=== PATIENT | female | born 1945 | race Caucasian/White ===

== ENCOUNTER 2017-12-26 13:40 | Emergency (ER) | END 2017-12-26 16:27 | disposition home or self-care (01) ==

== ENCOUNTER → 2018-01-26 | Outpatient (CLI) | payer OTHER ==
[~2018-01-26] MED LIST: AMOX500 PO; CARI350; CEFU250 PO; OXYC10ER; PROACE100; SOMA250 MG
[2018-01-26 16:46] LABS: Percent Saturation 44.8 % (15.0-50.0)
== END ==
LOC: LAB SHORT 15:00 → LAB 15:00
PROVIDERS: Internal Medicine Hematology & Oncology
DX: K92.1 Melena (principal); N18.9 Chronic kidney disease, unspecified; D63.1 Anemia in chronic kidney disease
CPT/HCPCS: 82728; 83540; 83550

== ENCOUNTER 2018-12-20 11:40 | Emergency (ER) | payer OTHER ==
[~2018-12-20] VITALS: Ht 180.3 cm; Wt 41.7 kg
[2018-12-20] MEDS ORDERED: Norco 5-325 Ta1 EACH PO (14:07)
== END 2018-12-20 14:18 | disposition home or self-care (01) ==
LOC: ER 11:40
DX: S93.401A Sprain of unspecified ligament of right ankle, initial encounter (principal); N18.9 Chronic kidney disease, unspecified; Z88.8 Allergy status to other drugs, medicaments and biological substances; Z91.041 Radiographic dye allergy status; Z86.19 Personal history of other infectious and parasitic diseases; W19.XXXA Unspecified fall, initial encounter
CPT/HCPCS: 73610; 99283-25

== ENCOUNTER → 2019-03-23 | Outpatient (CLI) | payer OTHER ==
[~2019-03-23] MED LIST changes: +Norco 5-325 Ta1 EACH PO
[2019-03-25 16:06] LABS: HPV 16 Negative (Negative); HPV 18 Negative (Negative); HPV OTHER HR TYPES Negative (Negative)
== END | disposition home or self-care (01) ==
LOC: LAB SHORT 19:38 → LAB 19:38
PROVIDERS: Obstetrics & Gynecology Gynecology
DX: Z12.4 Encounter for screening for malignant neoplasm of cervix (principal)
CPT/HCPCS: 87624; G0123

== ENCOUNTER → 2019-07-26 | Outpatient (CLI) | payer OTHER | END | disposition home or self-care (01) | LOC: PLD 10:54 → LAB SHORT 10:54 | DX: C44.41 Basal cell carcinoma of skin of scalp and neck (principal) | CPT/HCPCS: 88305 ==

== ENCOUNTER → 2019-08-04 | Outpatient (CLI) | payer OTHER | END | disposition home or self-care (01) | LOC: PLD 07:27 → LAB SHORT 07:27 | DX: C44.41 Basal cell carcinoma of skin of scalp and neck (principal) | CPT/HCPCS: 88305 ==

== ENCOUNTER → 2020-06-13 | Outpatient (CLI) | payer OTHER | END | disposition home or self-care (01) | LOC: LAB SHORT 08:19 → PLD 08:19 | DX: L57.0 Actinic keratosis (principal) | CPT/HCPCS: 88305 ==

== ENCOUNTER → 2020-12-03 | Outpatient (CLI) | payer OTHER ==
[2020-12-04 10:51] LABS: U Amphetamine Screen DETECTED; U Barbituate Screen Not Detected; U Benzodiazapine Screen Not Detected; U Buprenorphine Screen Not Detected; U Cannabinoids Screen Not Detected; U Cocaine Screen Not Detected; U Methadone Screen Not Detected; U Methamphetamine Screen Not Detected; U Opiates Screen Not Detected; U Oxycodone Screen Not Detected; U Phencyclidine Screen Not Detected; U Propoxyphene Screen Not Detected
== END | disposition home or self-care (01) ==
LOC: LAB SHORT 14:10 → LAB 14:10
PROVIDERS: Internal Medicine Hematology & Oncology
DX: R39.89 Other symptoms and signs involving the genitourinary system (principal); Z79.899 Other long term (current) drug therapy

== ENCOUNTER 2022-02-08 10:17 | Emergency (ER) | payer OTHER ==
[~2022-02-08] VITALS: Ht 157.5 cm; Wt 52.2 kg
[2022-02-08 11:13] LABS: BASOPHILS PERCENT AUTO 0 % (0-2); EOSINOPHILS ABSOLUTE AUTO 0.03 K/mm3 (0.00-0.68); EOSINOPHILS PERCENT AUTO 0 % (0-6); Hematocrit 22.4 % (33.0-51.0); Hemoglobin 6.9 g/dL (11.5-16.0); IMMATURE GRAN ABSOLUTE AUTO 0.05 K/mm3 (0.00-0.10); IMMATURE GRAN PERCENT AUTO 1 % (0-1); LYMPHOCYTES ABSOLUTE AUTO 0.55 K/mm3 (0.84-5.20); LYMPHOCYTES PERCENT AUTO 8 % (21-46); MONOCYTES ABSOLUTE AUTO 0.68 K/mm3 (0.16-1.47); MONOCYTES PERCENT AUTO 10 % (4-13); Mean Corpuscular HGB 33.5 pg (26.0-34.0); Mean Corpuscular HGB Conc 30.8 g/dL (31.5-36.5); Mean Corpuscular Volume 109 fL (80-100); Mean Platelet Volume 8.3 fL (9.1-12.4); NEUTROPHILS ABSOLUTE AUTO 5.55 K/mm3 (1.96-9.15); NEUTROPHILS PERCENT AUTO 81 % (41-73); NRBC ABSOLUTE 0.11 K/mm3 (0.00-0.02); NRBC Auto 1.6 /100 WBC (0.0-0.2); Platelet Count 308 K/mm3 (150-400); RDW Standard Deviation 75.4 fL (35.1-46.3); Red Blood Cell Count 2.06 M/mm3 (3.80-5.20); White Blood Cell Count 6.86 K/mm3 (4.00-11.30)
[2022-02-08 11:34] LABS: Albumin, Blood 2.7 g/dL (3.4-5.0); Albumin/Globulin Ratio 0.8 (0.8-1.8); Bilirubin, Total 0.2 mg/dL (0.1-1.0); Calcium, Blood 8.6 mg/dL (8.5-10.1); Creatinine, Blood 1.39 mg/dL (0.40-1.00); Globulin, Blood 3.4 g/dL (2.2-4.0); Potassium, Blood 3.3 mmol/L (3.5-5.5); Total Protein, Blood 6.1 g/dL (6.4-8.2)
[2022-02-08 12:26] LABS: Free Thyroxine 1.07 ng/dL (0.70-1.60); Percent Saturation 10.4 % (15.0-50.0); Thyroid Stimulating Hormone 1.16 uIU/mL (0.360-4.800)
[2022-02-08 14:26] LABS: Source, Urine Clean Catch
[2022-02-08 14:29] LABS: Appearance, Urine Hazy (Clear); Bilirubin, Urine Neg (Neg); Blood, Urine 1+ (Neg); Color, Urine Yellow (P-Yellow); Glucose Qualitative, Urine Neg (Neg); Ketones, Urine Neg (Neg); Leukocyte Esterase, Urine 3+ (Neg); Nitrite, Urine Pos (Neg); Protein, Urine 1+ (Neg); Urobilinogen, Urine NORM (Normal)
[2022-02-08 14:55] LABS: Bacteria Many /hpf; Squamous Epithelial Cells Few /hpf (Few)
[2022-02-08 14:56] LABS: Hyaline Casts 0-2 /lpf (0-2)
[2022-02-09] MEDS ORDERED: CEFD300 PO (10:00)
== END 2022-02-08 15:47 | disposition home or self-care (01) ==
LOC: ER 10:17
PROVIDERS: Emergency Medicine; Physician Assistant
DX: N39.0 Urinary tract infection, site not specified (principal); R53.1 Weakness; N18.9 Chronic kidney disease, unspecified; D63.1 Anemia in chronic kidney disease; Z91.041 Radiographic dye allergy status; Z88.8 Allergy status to other drugs, medicaments and biological substances
CPT/HCPCS: 36415; 36430; 70450; 71045; 74176; 80053; 81001; 82728; 83540; 83550; 83735; 84439; 84443; 85025; 86850; 86900; 86901; 86923; 87077; 87086; 87186; 93005; 93010; 99285-25; J7030; P9016

== ENCOUNTER → 2022-02-12 | Outpatient (CLI) | payer OTHER ==
[~2022-02-12] MED LIST changes: +CEFD300 PO
[2022-02-12 16:17] LABS: Percent Saturation 32.3 % (15.0-50.0)
== END | disposition home or self-care (01) ==
LOC: LAB SHORT 10:11
PROVIDERS: Internal Medicine Hematology & Oncology
DX: E53.8 Deficiency of other specified B group vitamins (principal); N18.9 Chronic kidney disease, unspecified; D63.1 Anemia in chronic kidney disease
CPT/HCPCS: 82607; 82728; 82746; 83540; 83550

== ENCOUNTER 2022-07-30 13:21 | Inpatient (IN) | payer OTHER ==
[~2022-07-30] VITALS: Ht 165.1 cm; Wt 87.8 kg
[2022-07-30 14:13] LABS: BASOPHILS PERCENT AUTO 0 % (0-2); EOSINOPHILS PERCENT AUTO 0 % (0-6); Hematocrit 20.7 % (33.0-51.0); IMMATURE GRAN ABSOLUTE AUTO 0.12 K/mm3 (0.00-0.10); IMMATURE GRAN PERCENT AUTO 1 % (0-1); LYMPHOCYTES ABSOLUTE AUTO 0.18 K/mm3 (0.84-5.20); LYMPHOCYTES PERCENT AUTO 1 % (21-46); MONOCYTES PERCENT AUTO 8 % (4-13); Mean Corpuscular HGB 25.7 pg (26.0-34.0); Mean Corpuscular HGB Conc 26.1 g/dL (31.5-36.5); Mean Corpuscular Volume 99 fL (80-100); Mean Platelet Volume 10.7 fL (9.1-12.4); NEUTROPHILS ABSOLUTE AUTO 11.68 K/mm3 (1.96-9.15); NEUTROPHILS PERCENT AUTO 90 % (41-73); NRBC ABSOLUTE 0.11 K/mm3 (0.00-0.02); NRBC Auto 0.8 /100 WBC (0.0-0.2); Platelet Count 165 K/mm3 (150-400); RDW Coefficient Variation 21.6 % (11.7-14.2); RDW Standard Deviation 75.9 fL (35.1-46.3); White Blood Cell Count 12.98 K/mm3 (4.00-11.30)
[2022-07-30 14:16] LABS: Hemoglobin 5.4 g/dL (11.5-16.0)
[2022-07-30 14:30] LABS: Source, Urine Straight Cath
[2022-07-30 14:30] LABS: Albumin, Blood 3.1 g/dL (3.4-5.0); Albumin/Globulin Ratio 0.9 (0.8-1.8); Bilirubin, Total 0.7 mg/dL (0.1-1.0); Bun/Creatinine Ratio 37.2 (12.0-20.0); Calcium, Blood 9.4 mg/dL (8.5-10.1); Creatinine, Blood 1.72 mg/dL (0.40-1.00); Globulin, Blood 3.6 g/dL (2.2-4.0); Magnesium, Blood 2.1 mg/dL (1.6-2.4); Potassium, Blood 3.9 mmol/L (3.5-5.5); Total Protein, Blood 6.7 g/dL (6.4-8.2)
[2022-07-30 14:37] LABS: Appearance, Urine Hazy (Clear); Bilirubin, Urine Neg (Neg); Blood, Urine 5+ (Neg); Color, Urine Yellow (P-Yellow); Glucose Qualitative, Urine Neg (Neg); Ketones, Urine 1+ (Neg); Leukocyte Esterase, Urine 1+ (Neg); Nitrite, Urine Pos (Neg); Protein, Urine 2+ (Neg); Urobilinogen, Urine NORM (Normal)
[2022-07-30 14:53] LABS: Creatine Kinase MB 60.7 ng/mL (0.0-3.6)
[2022-07-30 15:11] LABS: Creatine Kinase MB Index 1.4 (0.0-4.0)
[2022-07-30 15:15] LABS: Bacteria Many /hpf
[2022-07-30 15:17] LABS: Squamous Epithelial Cells Rare /hpf (Few); Transitional Epithelial Cells Rare /hpf (0-Rare)
[2022-07-30 22:03] LABS: Percent Saturation 40.5 % (15.0-50.0)
[2022-07-31 04:14] LABS: Hematocrit 28.8 % (33.0-51.0); Hemoglobin 8.6 g/dL (11.5-16.0); Mean Corpuscular HGB Conc 29.9 g/dL (31.5-36.5); NRBC ABSOLUTE 0.07 K/mm3 (0.00-0.02); NRBC Auto 0.7 /100 WBC (0.0-0.2); Platelet Count 127 K/mm3 (150-400); RDW Coefficient Variation 22.2 % (11.7-14.2); RDW Standard Deviation 70.1 fL (35.1-46.3); Red Blood Cell Count 3.19 M/mm3 (3.80-5.20); White Blood Cell Count 10.42 K/mm3 (4.00-11.30)
[2022-07-31 04:23] LABS: Mean Corpuscular Volume 90 fL (80-100)
[2022-07-31 04:43] LABS: Bun/Creatinine Ratio 37.8 (12.0-20.0); Calcium, Blood 8.7 mg/dL (8.5-10.1); Creatinine, Blood 1.43 mg/dL (0.40-1.00); Potassium, Blood 3.3 mmol/L (3.5-5.5)
--- NOTE | 2022-07-31 05:19 | NUR ---
SHIFT SUMMARY ER ADMIT, ARRIVAL TO PCU AT 2205. PT ALERT AND ORIENTED X2. AFEBRILE. HR SR/ST 90-110S. BP STABLE. ON RA SATS OVER 96%. C/O R JAW PAIN, MEDICATED PER EMAR. MOORE IN PLACE DRAINING TO GRAVITY. D5 INFUSING AT 75ML/HR. PT ON BEDREST THROUGHOUT THE NIGHT. PT REPORTS SHE DOES NOT KNOW WHY SHE IS HERE OR WHEN HER WOUNDS STARTED. SEE WOUND PHOTOS IN CHART. PT RESTING COMFORTABLY MOST OF NIGHT AFTER 0100. ASLEEP WITH CALL ALARM AT SIDE, WILL CONTINUE TO MONITOR UNTIL REPORT GIVEN TO ONCOMING RN
--- NOTE | 2022-07-31 14:03 | NUR ---
Brief supportive visit this afternoon. Pt resting in bed with her eyes closed. Pt wakes to gentle verbal stimuli. Pt is pleasantly confused A&OX1. Pt unable to state place, reason for stay, current year, or name family members. Pt appears lethargic states being tired. Ended visit to allow Pt to rest. Attempted to call Pt's daughter Nery. Left message on voicemail with request for a return phone call. Called alternate number listed for daughter Nery and reached Pt's other daughter Layla. Provided update and reviewed plan of care. Layla reports Nery will be Pt's decision maker. Discussed plan to contact Nery regarding Pt's code status. Layla in agreement. Palliative Care will remain available.
--- NOTE | 2022-07-31 15:03 | NUR ---
Received return phone call Pt's daughter Nery. Provided update and engaged in discussion regarding code status. Nery reports having completed a POLST with Pt and Pt's PCP in the past with Pt's wishes to be DNR. Nery would like her code status to align with POLST for DNR. Offered active listening and answered questions. Gentle education on disease process including trajectory. Discussed the importance of planning for the future as disease progresses. Nery reports several attempts in the past to convince Pt to move in with her. Suggested at some point obtaining guardianship for Pt due to her dementia. Continued supportive conversation. Nery expresses appreciation and reports no other concerns. Spoke with Dr Chow and discussed case. Placed order for DNR in [facility] per V/O from Dr Chow. Palliative Care will remain available.
--- NOTE | 2022-07-31 17:32 | NUR ---
SHIFT SUMMARY/TRANSFER NOTE PT ALERT TO FIRST NAME ONLY AND DATE OF . SHE REPORTED THAT SHE THOUGHT SHE WAS "SOMEWHERE AT HOME." DESPITE REORIENTATION, SHE REMAINS CONFUSED TO PLACE AND SITUATION. SHE HAS ONLY USED THE CALL LIGTH ONCE DURING SHIFT AND HAS OTHERWISE CALLED OUT FOR WATER. SIPS OF WATER GIVEN BY SPOON BUT PT DENIED WANTING ANY OTHER PO INTAKE. VSS, SPO2 100% VIA ROOM AIR. SEE EMAR FOR PAIN MANAGEMENT. SHE REMAINED AFEBRILE AND DENIED FEELINGS OF NAUSEA. MOORE CATHETER IN PLACE AND DRAINING TO GRAVITY LIGHT YELLOW OUTPUT. NO BM THIS SHIFT, SEE EMAR FOR BOWEL CARE. SEE CHART FOR PHOTOS OF WOUNDS, WOUND LOCATED ABOVE PELVIC AREA WAS CLEANSED W/ WOUND CLEANSER BUT LEFT OPEN TO AIR. Q2 TURNING IMPLIMENTED TO KEEP OFF PRESSURE POINTS. SIGNIFICANT OTHER JOVON WAS AT BEDSIDE THIS AM AND PER HIS REPORT, HE AND THE PT DO NOT LIVE TOGETHER. [facility] CERTIFIED PERSONAL FINANCE COUNSELOR SPOKE W/ JOVON IN REGARD TO EVENT AND ASKED HOW PT AQUIRED WOUND OVER PELVIC AREA. SIGNIFICANT OTHER JOVON STATED THAT HE HAS NOT SEEN HER UNDRESSED AND WAS UNAWARE OF ANY WOUND. SHE WAS SOMNOLENT FOR MAJORITY OF SHIFT. PRINCE FROM PALLIATIVE CARE WAS ALSO AT BEDSIDE AND PER PRINCE RN REPORT, HE SPOKE W/ PT DAUGHTER TANIA WHO IS ALSO THE HEALTHCARE PROXY. REPORT GIVEN TO MAITE TONY ON MEDICAL FLOOR AND PT TRANSFERED VIA HOSPITAL BED AT APPROX 1810 TO ROOM 305.
--- NOTE | 2022-07-31 19:19 | NUR ---
PT ARRIVED TO ROOM APPROX 1820 AND SETTLED IN. OBSERVED BRUISING TO FACE AND NECROTIC APPEARING WOUND TO L ANTERIOR PELVIC REGION. QUIET THROUGHOUT SETTLING IN PROCESS. IV FLUIDS INFUSING. REPORT GIVEN TO ONCOMING SHIFT.
--- NOTE | 2022-08-01 05:00 | NUR ---
SHIFT SUMMARY: PT IS ALERT WITH SOME BASELINE CONFUSION. PT WAS ANXIOUS INTERMITTENTLY THROUGHOUT THE NIGHT. PT IS A 1-2 PERSON ASSIST WITH FWW, NOT OUT OF BED THIS SHIFT. PT REPORTS PAIN ON TWO OCCASION, MEDICATING PER EMAR. PT DENIES NAUSEA AND VOMITING. MOORE PATENT AND DRAINING YELLOW URINE. PT SLEPT OFF AND ON. NO ACUTE CHANGES OR COMPLICATIONS. BED IN LOW POSITION, CALL LIGHT WITHIN REACH. WILL REPORT TO DAY NURSE.
[2022-08-01 05:06] LABS: BASOPHILS PERCENT AUTO 0 % (0-2); EOSINOPHILS ABSOLUTE AUTO 0.03 K/mm3 (0.00-0.68); EOSINOPHILS PERCENT AUTO 1 % (0-6); Hematocrit 28.6 % (33.0-51.0); Hemoglobin 8.5 g/dL (11.5-16.0); IMMATURE GRAN ABSOLUTE AUTO 0.03 K/mm3 (0.00-0.10); IMMATURE GRAN PERCENT AUTO 1 % (0-1); LYMPHOCYTES ABSOLUTE AUTO 0.83 K/mm3 (0.84-5.20); LYMPHOCYTES PERCENT AUTO 13 % (21-46); MONOCYTES ABSOLUTE AUTO 0.83 K/mm3 (0.16-1.47); MONOCYTES PERCENT AUTO 13 % (4-13); Mean Corpuscular HGB 27.1 pg (26.0-34.0); Mean Corpuscular HGB Conc 29.7 g/dL (31.5-36.5); Mean Corpuscular Volume 91 fL (80-100); Mean Platelet Volume 10.2 fL (9.1-12.4); NEUTROPHILS ABSOLUTE AUTO 4.46 K/mm3 (1.96-9.15); NEUTROPHILS PERCENT AUTO 72 % (41-73); NRBC ABSOLUTE 0.02 K/mm3 (0.00-0.02); NRBC Auto 0.3 /100 WBC (0.0-0.2); Platelet Count 122 K/mm3 (150-400); RDW Coefficient Variation 22.3 % (11.7-14.2); RDW Standard Deviation 72.4 fL (35.1-46.3); Red Blood Cell Count 3.14 M/mm3 (3.80-5.20); White Blood Cell Count 6.18 K/mm3 (4.00-11.30)
[2022-08-01 05:49] LABS: Albumin, Blood 2.5 g/dL (3.4-5.0); Anion Gap 7 mmol/L (6-16); Blood Urea Nitrogen 27 mg/dL (8-24); Bun/Creatinine Ratio 32.3 (12.0-20.0); CO2, Blood 23 mmol/L (21-32); Calcium, Blood 8.8 mg/dL (8.5-10.1); Chloride, Blood 117 mmol/L (98-108); Creatinine, Blood 0.84 mg/dL (0.40-1.00); Glomerular Filtration Rate 72 (60-); Glucose, Blood 122 mg/dL (70-99); Magnesium, Blood 1.9 mg/dL (1.6-2.4); Phosphorus, Blood 1.7 mg/dL (2.5-4.9); Potassium, Blood 2.8 mmol/L (3.5-5.5); Sodium, Blood 147 mmol/L (136-145)
--- NOTE | 2022-08-01 16:22 | NUR ---
Spoke with Primary RN Luh and discussed case. Pt has ulser in pubic area, poor appetite they may be due sore mouth. Pt resting in bed and is pleasantly confused. Pt initialy denies pain but when ask if her mouth is sore she conirms pain. Inquired if pain is contributing towards decreased PO intake. Pt states maybe a little and some is due to no appetite. Continued supportive visit. Palliative Care will remain available.
--- NOTE | 2022-08-01 18:36 | NUR ---
PATIENT IS ALERT AND ORIENTED AND COOPERATIVE WITH CARE. C/O HEADACHE THIS MORNING AND THEN PAIN "ALL OVER" THIS AFTERNOON, MEDICATED PER EMAR. PATIENT HAS A POOR APPETITE. ONLY DRINKING ENSURES IF ENCOURAGED. PATIENT'S DAUGHTER CALLED AND WAS UPDATED TODAY. DAUGHTER PLANS ON VISITING TOMORROW AND STAYING THROUGHOUT THE WEEKEND. WILL CONTINUE TO MONITOR
--- NOTE | 2022-08-02 05:10 | NUR ---
SHIFT SUMMARY: PT CONTINUES TO HAVE INTERMITTENT CONFUSION, BUT IS VERY CALM, PLEASANT, AND COOPERATIVE WITH CARE, REORIENTATION AND THERAPEUTIC COMMUNICATION NEEDED. PT CONTINUES TO REPORT PAIN AT TIMES, MEDICATING PER EMAR. PT DENIES NAUSEA, VOMITING, AND SOB. NO ACUTE CHANGES OR COMPLICATIONS. WILL REPORT TO DAY NURSE.
[2022-08-02 09:08] LABS: Albumin, Blood 2.2 g/dL (3.4-5.0); Anion Gap 7 mmol/L (6-16); Blood Urea Nitrogen 16 mg/dL (8-24); Bun/Creatinine Ratio 22.4 (12.0-20.0); CO2, Blood 24 mmol/L (21-32); Calcium, Blood 8.2 mg/dL (8.5-10.1); Chloride, Blood 113 mmol/L (98-108); Creatinine, Blood 0.72 mg/dL (0.40-1.00); Glomerular Filtration Rate 87 (60-); Glucose, Blood 100 mg/dL (70-99); Phosphorus, Blood 1.8 mg/dL (2.5-4.9); Potassium, Blood 3.7 mmol/L (3.5-5.5); Sodium, Blood 144 mmol/L (136-145)
--- NOTE | 2022-08-02 18:42 | NUR ---
SHIFT SUMMARY PT REMAINS CONFUSED OFF AND ON, REORIENTS WELL. MEDICATED FOR HER C/O OF CHRONIC BACK PAIN PER EMAR. F/C IS INTACT & PATENT, DRAINING YELLOW URINE. IS PLEASANT & COOPERATIVE WITH ALL CARE. SHE WORKED WITH PT TODAY. HER DTRS FROM [place] HAVE BEEN HERE MOST OF THE SHIFT AT THE BEDSIDE. CAME UP TO TALK WITH THEM. PLAN IS LIKELY SNF PLACEMENT UPON DC.
--- NOTE | 2022-08-03 06:34 | NUR ---
Rn summary: Pt is a very pleasant woman who is very confused and forgetful. She asks the same questions over and over. She states she doesn't know where she is or how she got here. Pt has not tried tp get out of bed. She has been turned q 2 hours. Pt has a mccormick cath with goo urine output. Pt has scattered bruising from falls at home. Pt has been medicated x1 for pain of a VILLALOBOS. Pt has rested on and off. Bed alarm is on, call light in reach, freq monitoring.
--- NOTE | 2022-08-03 18:38 | NUR ---
SHIFT SUMMARY PT CONFUSED AND FORGETFUL. WOULD YELL/CALL OUT FOR NURSE AND FOR HELP. UNABLE TO COGNITIVELY REMEMBER TO USE THE CALL LIGHT WHICH IS WITHIN REACH. MEDICATED FOR C/O BACK PAIN & HEADACHE PER EMAR. F/C INTACT & PATENT, DRAINING CLEAR YELLOW URINE. PT REQUIRED ASSISTANCE WITH EATING, APPETITE IS MARGINAL. SUSPECT WILL NEED SNF/MEMORY CARE PLACEMENT UPON DC.
--- NOTE | 2022-08-04 05:27 | NUR ---
Rn summary: Patient is confused, alert and oriented to self. Pt knows she is not home but doesnt know where she is. Patient has rested fairly well. Does call out when she has needs. Aguero cath is patent with dk yellow urine. Pt has various wounds, worst is the decub on her mons-pubis. Area cleaned and mepilex to cover. Area has significant white eschar. Pt repositioned freq, given snacks. No c/o pain tonight. Bed alar on and call light in reach.
[2022-08-04 05:40] LABS: Bun/Creatinine Ratio 20.8 (12.0-20.0); Calcium, Blood 8.6 mg/dL (8.5-10.1); Creatinine, Blood 0.63 mg/dL (0.40-1.00)
--- NOTE | 2022-08-04 20:29 | NUR ---
SHIFT SUMMARY PLEASANT 77-YEAR-OLD FEMALE WITH SOME CONFUSION, A&O TO SELF AND FAMILY. IV TO L WRIST. TAKES MEDICATIONS WHOLE WITH APPLESAUCE AND NEEDS ASSISTANCE WITH FEEDING. 2-PERSON ASSIST TO BEDSIDE COMMODE. VERY WEAK LOWER EXTREMITIES. OSCAR REMOVED THIS SHIFT, AND 2 HOURS LATER PTN PRODUCED ABOUT 100 CC. SHE HAS DIFFICULTY WITH USE OF THE CALL LIGHT, BUT IS ABLE TO APPROPRIATELY YELL OUT FOR HELP. PTN WITH FRAGILE, DRY SKIN WITH SCRAPES AND SCABS AT VARIOUS LOCATIONS. FOAM PLACED TO LOWER ABDOMEN BY LAST SHIFT, REPORTED TO BE A WHITE ESCAR THAT WAS HEALING SKIN BREAKDOWN. FOAM C/D/I. CHRONIC BACK PAIN. PTN WAS FOUND DOWN AT HER HOME PRIOR TO ADMIT AND WILL NEED CARE ON DC. PLAN FOR SNF PLACEMENT. CONTINUE TO MONITOR.
--- NOTE | 2022-08-05 06:12 | NUR ---
Rn summary: Patient is alert to self. Pt does not call for assist, bed alarm on because patient tries to get up on her own, and she is not stong enough to transfer self, stands funny on her legs. Pt with lg soft BM tonight. Pt has been continent tonight. Pt is more alert and "brighter". Order for wound consult to pubis bone decubitus. Pt needs assist with eating and drinking. Frequent monitoring.
[2022-08-05 08:40] LABS: Influenza A, PCR NEGATIVE (NEGATIVE); Influenza B, PCR NEGATIVE (NEGATIVE); Resp Syncytial Virus, PCR NEGATIVE (NEGATIVE); SARS-Cov-2 (COVID-19) PCR, MMC NEGATIVE (NEGATIVE)
[2022-08-05 10:09] LABS: Stool Occult Blood Guaiac 1 Pos (Neg)
[2022-08-05 10:21] LABS: Stool Occult Bld Immuno 1 Negative (NEGATIVE)
--- NOTE | 2022-08-05 17:47 | NUR ---
WOUND PHOTO AND ASSESSMENT IN HARD CHART. DRESSING ORDERS IN [facility]. PT WOULD BENEFIT FROM DEBRIDEMENT AND WILL NEED FOLLOW UP WITH WOUND ON DC
--- NOTE | 2022-08-05 18:39 | NUR ---
SHIFT SUMMARY WOUND CONSULT WAS CALLED OFR THE PATIENT TODAY AND NURSE CAME UP AND PLACED ORDERS FOR WOULD CARE AND A CONSULT TO SURGEON FOR POSSIBLE DEBRIDEMENT. PT WAS COMPLAINING OF PAIN ALL OVER WHENEVER SAT UP IN THE CHAIR, BUT WAS FINE ONCE PLACED IN THE BED. BOYFRIENDS CAME TO VISIT HER AND WAS AWARE OF HER FAILURE TO TRHIVE AND PUBIC WOUND, BUT STATED " I DON'T KNOW WHAT OT DO ABOUT IT" PT HAS BEEN COMFUSED BUT CALM AND COMPLIANT TODAY WITH THE BED ALARM ON. BED IN LOWEST POSITION AND CALL LIGHT IN REACH
--- NOTE | 2022-08-06 05:20 | NUR ---
SHIFT SUMMARY: PT IS ALERT WITH CONFUSION, BASELINE DEMENTIA. PT IS CALM AND COOPERATIVE WITH CARE. PT DOES NOT USE HER CALL LIGHT, SET BED ALARM OFF SEVERAL TIMES GETTING UP TO THE BSC, 2 ASSIST. PT REPORTS VILLALOBOS EARLY IN THE NIGHT, GAVE PRN OXYCODONE. PT DENIES NAUSEA, VOMITING, AND SOB. PT SLEPT INTERMITTENTLY THROUGHOUT THE NIGHT. AWAITING PLACEMENT. NO ACUTE CHANGES OVERNIGHT. WILL REPORT TO DAY NURSE.
[2022-08-06 07:58] LABS: Hematocrit 29.1 % (33.0-51.0); Hemoglobin 8.4 g/dL (11.5-16.0); Mean Corpuscular HGB 26.8 pg (26.0-34.0); Mean Corpuscular HGB Conc 28.9 g/dL (31.5-36.5); Mean Corpuscular Volume 93 fL (80-100); Platelet Count 200 K/mm3 (150-400); RDW Coefficient Variation 20.8 % (11.7-14.2); RDW Standard Deviation 71.1 fL (35.1-46.3); Red Blood Cell Count 3.13 M/mm3 (3.80-5.20); White Blood Cell Count 3.88 K/mm3 (4.00-11.30)
[2022-08-06 08:18] LABS: Bun/Creatinine Ratio 14.7 (12.0-20.0); Calcium, Blood 8.8 mg/dL (8.5-10.1); Creatinine, Blood 0.75 mg/dL (0.40-1.00)
--- NOTE | 2022-08-06 18:10 | NUR ---
SHIFT SUMMARY- PT IS ALERT, PLESANT AND COOPERATIVE. SHE IS EATING AND DRINKING WELL THIS SHIFT. SHE HAD A BM THIS SHIFT. SHE HAD SOME INTERMITENT CONFUSION AND WAS CALLING OUT AND REPORTING PAIN, TREATED PER MAR. ONE DOSE OF ATIVAN GIVEN. FAMILY AT BEDSIDE. HER BED IS IN THE LOW PSOTION CALL LIGHT IS WITIN REACH. DX TO [facility] TOMORROW
--- NOTE | 2022-08-07 08:01 | NUR ---
TRAFFIC MANAGER SUMMARY PATIENT WOULD SLEEP FOR A SHORT WHILE, THEN WAKE UP AND START YELLING. SOMETIMES COMPLAINING ABOUT A HEADACHE AND THAT SHE JUST WANTED TO MAKE IT GO AWAY. PAIN WAS MANAGED WITH OXYCODONE AND FENTANYL WITH GOOD EFFECT, BUT SHE WOULD BE YELLING FOR MORE STAFF IN THE ROOM OR HER SIG. OTHER. CALL PLACED TO NIGHT HOSPITALIST WHO ORDERED A NOW DOSE OF SEROQUEL AND THEN TO BE GIVEN NIGHTLY AT HS. SKIN IS QUITE PINK IN HER PORFIRIO/RECTAL AREA. AREA CLEANED AFTER STOOL, AND BARRIER CREAM APPLIED.
[2022-08-07] MEDS ORDERED: HURRICAINE ONE1 EACH MM (11:10)
[2022-08-07] MEDS ORDERED: ACET325 PO (11:10)
[2022-08-07] MEDS ORDERED: LIDO700A20 TOP (11:11)
[2022-08-07] MEDS ORDERED: DOCU100 PO (11:11)
[2022-08-07] MEDS ORDERED: OXYC5 PO (11:13)
[2022-08-07] MEDS ORDERED: NYSTATIN100000 U10 MT (11:13)
[2022-08-07 11:54] LABS: SARS-Cov-2 (COVID-19) PCR, MMC NEGATIVE (NEGATIVE)
--- NOTE | 2022-08-07 14:30 | NUR ---
PT DISCHARGED TO [facility] WITH DAUGHTER/GRANDDAUGHTER/FRIEND IN ATTENDENCE. BELONGINGS AND PAPERWORK WITH PT AND [facility] [employer] ON DISCHARGE. REPORT CALLED TO MARYSOL AT [facility]. TO CURB VIA W/C.
== END 2022-08-07 14:01 | DRG 871 ==
LOC: ER 13:21 → MEDS 17:26 → PCU 22:03 → MEDS 07-31 18:18
PROVIDERS: Emergency Medicine; Internal Medicine; ADMIT Internal Medicine
PROC: 30233N1 Transfusion of Nonautologous Red Blood Cells into Peripheral Vein, Percutaneous Approach (ICD-10-PCS; principal; 2022-07-30)
PROC: 3E03329 Introduction of Other Anti-infective into Peripheral Vein, Percutaneous Approach (ICD-10-PCS; 2022-07-30)
DX: A41.51 Sepsis due to Escherichia coli [E. coli] (principal); G92.9 Unspecified toxic encephalopathy; N39.0 Urinary tract infection, site not specified; N17.9 Acute kidney failure, unspecified; E87.0 Hyperosmolality and hypernatremia; R65.20 Severe sepsis without septic shock; M54.59 Other low back pain; G89.29 Other chronic pain; N18.9 Chronic kidney disease, unspecified; D50.9 Iron deficiency anemia, unspecified; N18.30 Chronic kidney disease, stage 3 unspecified; T79.6XXA Traumatic ischemia of muscle, initial encounter; F03.90 Unspecified dementia, unspecified severity, without behavioral disturbance, psychotic disturbance, mood disturbance, and anxiety; Z88.8 Allergy status to other drugs, medicaments and biological substances; Z91.041 Radiographic dye allergy status; Z87.891 Personal history of nicotine dependence; Z90.89 Acquired absence of other organs; Z98.51 Tubal ligation status; Z98.890 Other specified postprocedural states; Z79.899 Other long term (current) drug therapy
CPT/HCPCS: 0241U; 36415; 36430; 70450; 70486; 71045; 71250; 72125; 74176; 80048; 80053; 80069; 81001; 82272; 82274; 82550; 82553; 82728; 83540; 83550; 83605; 83690; 83735; 83880; 84295; 84484; 85025; 85027; 86850; 86900; 86901; 86923; 87040; 87077; 87086; 87186; 93005; 93010; 96365-59; 96375-59; 97110; 97116; 97162; 97166; 97530; 97535; 99285-25; A9270; C9113; J0696; J1170; J1650; J2060; J2270; J2543; J3010; J7030; J7042; J7060; J7070; P9016; P9612; U0004